=== PATIENT | male | born 1985 | race Caucasian/White ===

== ENCOUNTER 2018-05-16 16:15 | Inpatient (IN) | payer SELFPAY ==
[2018-05-16 16:47] LABS: BILIRUBIN,URINE SMALL (NEG); CLARITY,URINE CLEAR; COLOR,URINE YELLOW; GLUCOSE,URINE NEGATIVE (NEG); NITRITE,URINE NEGATIVE (NEG); PROTEIN,URINE NEGATIVE (NEG-TRACE)
[2018-05-16 16:54] LABS: AMPHETAMINE/METHAMPHETAMINE POS (NEG); BARBITURATES NEG (NEG); BENZODIAZEPINES NEG (NEG); CANNABINOIDS POS (NEG); COCAINE NEG (NEG); ETHANOL, URINE NEG (NEG); METHADONE NEG (NEG); OPIATES NEG (NEG); PHENCYCLIDINE NEG (NEG)
[2018-05-16 16:55] LABS: BACTERIA,URINE 0 /HPF (0-FEW); RBC,URINE 0 /HPF (0-2)
[2018-05-16 17:28] LABS: ADD MAN DIFF? NO
[2018-05-16 17:30] LABS: BASO % 0 % (0-3); EOS % 0 % (0-3); HEMATOCRIT 46.3 % (39.0-53.0); HEMOGLOBIN 15.6 g/dL (13.0-17.5); LYMPH # 1.6 x10^3/uL (1.0-4.8); LYMPH % 19 % (24-48); MEAN CORPUSCULAR HEMOGLOBIN 31 pg (25-35); MEAN CORPUSCULAR HGB CONC 34 g/dL (31-37); MEAN CORPUSCULAR VOLUME 92 fL (79-100); MONO # 0.6 x10^3/uL (0.0-1.1); MONO % 8 % (0-9); NEUT # 5.9 x10^3uL (1.8-7.7); NEUT % 72 % (31-73); PLATELET COUNT 237 x10^3/uL (140-400); RED BLOOD COUNT 5.02 x10^6/uL (4.30-5.70); WHITE BLOOD COUNT 8.2 x10^3/uL (4.0-11.0)
[2018-05-16 17:45] LABS: ANION GAP 11 (6-14); BLOOD UREA NITROGEN 15 mg/dL (8-26); BUN/CREATININE RATIO 14 (6-20); CARBON DIOXIDE 27 mmol/L (21-32); CHLORIDE 102 mmol/L (98-107); CREATININE 1.1 mg/dL (0.7-1.3); GFR 78.1; GLUCOSE 136 mg/dL (70-99); POTASSIUM 3.1 mmol/L (3.5-5.1); SODIUM 140 mmol/L (136-145)
[2018-05-16 17:50] LABS: ALBUMIN/GLOBULIN RATIO 1.3 (1.0-1.7); ALK PHOS 54 U/L (46-116); ALT (SGPT) 24 U/L (16-63); AST (SGOT) 13 U/L (15-37); SALIC < 2.8 mg/dL (2.8-20.0); TOTAL BILIRUBIN 0.8 mg/dL (0.2-1.0); TOTAL PROTEIN 7.2 g/dL (6.4-8.2)
[2018-05-16 17:51] LABS: ACETAMIN < 2 mcg/ml (10-30)
[2018-05-16 17:52] LABS: ETHANOL < 10 mg/dL (0-10)
[2018-05-16] MEDS ORDERED: LORazepam 0.5 MG TABLET PO (20:45)
[2018-05-16] MEDS: LORazepam 0.5 MG TABLET PO (21:10)
[2018-05-16] MEDS: NICOTINE 21MG PATCH. TD (23:54)
[2018-05-17] MEDS ORDERED: ALPRAZolam 0.5 MG TABLET PO (08:30)
[2018-05-17] MEDS: POTASSIUM CHLORIDE 20 MEQ TABLET.ER. PO (09:24)
[2018-05-17] MEDS: QUEtiapine 100 MG TABLET. PO (21:16)
== END 2018-05-18 09:25 | DRG 881 ==
LOC: ER 16:15 → ED HOLD 20:33 → 6 SOUTH 22:27
DX: F32.9 Major depressive disorder, single episode, unspecified (principal); R45.851 Suicidal ideations; F90.9 Attention-deficit hyperactivity disorder, unspecified type; F43.10 Post-traumatic stress disorder, unspecified; F15.90 Other stimulant use, unspecified, uncomplicated; F12.90 Cannabis use, unspecified, uncomplicated; F17.210 Nicotine dependence, cigarettes, uncomplicated; G47.00 Insomnia, unspecified; F41.9 Anxiety disorder, unspecified
CPT/HCPCS: 36415; 80053; 80307; 80329; 81001; 85025; 99285; 99285-25; G0480; G6039

== ENCOUNTER 2018-06-22 11:56 | Emergency (ER) | payer SELFPAY ==
[~2018-06-22] VITALS: Ht 195.6 cm; Wt 93.9 kg
[2018-06-22 12:09] VITALS: BP 117/68
[2018-06-22] MEDS ORDERED: SULF1TAB24 PO (12:47)
--- NOTE | 2018-06-22 12:47 | PHYS DOC ---
Past Medical History Past Medical History: No Pertinent History, Anxiety, Depression Additional Past Medical Histor: ADHD, PTSD Past Surgical History: Other Additional Past Surgical Histo: HERNIA Smoking: Cigarettes Alcohol Use: Heavy Drug Use: Marijuana, Methamphetamine Adult General Chief Complaint Chief Complaint: LOWER EXT PAIN HPI HPI 32-year-old male presents to ER with complaints of right lower leg sores with drainage. Pt reports he was scratched by a cat 2 wks ago and then developed the sores. He denies fever, numbness/tingling, or difficulty walking. He reports he has some swelling in groin denying urinary sxs, testicular pain/swelling, or scrotal pain/swelling. Review of Systems Review of Systems Constitutional: Denies fever or chills [] Respiratory: Denies cough or shortness of breath [] Cardiovascular: Denies CP/palpitations GI: Denies abdominal pain, nausea, vomiting : Denies dysuria or hematuria. Denies scrotal or testicular pain/swelling. Reports swelling in rt groin Musculoskeletal: Denies joint pain. Denies inability/difficulty walking Integument: Reports 3 wounds on rt anterior choudhury with drainage from 2 areas Neurologic: Denies headache, focal weakness or sensory changes [] All other systems were reviewed and found to be within normal limits, except as documented in this note. Allergies Allergies Allergies Coded Allergies Type Severity Reaction Last Updated Verified No Known Drug Allergies 05/16/18 No Physical Exam Physical Exam Constitutional: Well developed, well nourished, no acute distress, non-toxic appearance. [] HENT: Normocephalic, atraumatic, bilateral external ears normal, oropharynx moist, no oral exudates, nose normal. [] Eyes: PERRLA, EOMI, conjunctiva normal, no discharge. [] Neck: Normal range of motion, no tenderness, supple, no stridor. [] Cardiovascular:Heart rate regular rhythm, no murmur [] Lungs & Thorax: Bilateral breath sounds clear to auscultation [] Abdomen: Bowel sounds normal, soft, no tenderness, no masses, no pulsatile masses. [] Skin: Warm, dry, no erythema, no rash. [] Back: No tenderness, no CVA tenderness. [] Extremities: No tenderness, no cyanosis, no clubbing, ROM intact, no edema. [] Neurologic: Alert and oriented X 3, normal motor function, normal sensory function, no focal deficits noted. [] Psychologic: Affect normal, judgement normal, mood normal. [] Current Patient Data Vital Signs Vital Signs Date Time Temp Pulse Resp B/P (MAP) Pulse Ox O2 Delivery O2 Flow Rate FiO2 06/22/18 12:09 99.0 76 16 117/68 (84) 100 Room Air 99.0 Lab Values Microbiology 06/22/18 Aerobic Culture - Final, Complete 06/22/18 Aerobic Culture Result 1 (SHAYAN) - Final, Complete 06/22/18 Gram Stain - Final, Complete 06/22/18 Gram Stain Result 1 (SHAYAN) - Final, Complete 06/22/18 Gram Stain Result 2 (SHAYAN) - Final, Complete 06/22/18 Gram Stain Result 3 (SHAYAN) - Final, Complete EKG EKG [] Radiology/Procedures Radiology/Procedures [] Course & Med Decision Making Course & Med Decision Making Wound cx was obtained from drainage at sores on rt anterior choudhury. Pt was nontoxic in appearance and was noted to have steady gait while in ER. Will provide Rx for Bactrim DS and pt to f/u with PCP for wound re-evaluation if sxs worsen or return to ER for re-eval. Pt was educated on home wound care. Drsg will be applied prior to d/c. Called patient left regarding wound culture. He needs to be on Augmentin- justyn MALIK 06/27/2018 [id number] Eric Disclaimer Eric Disclaimer This electronic medical record was generated, in whole or in part, using a voice recognition dictation system. Departure Departure Impression: Primary Impression: Abscess Disposition: 01 HOME, SELF-CARE Condition: STABLE Referrals: NO PCP (PCP) Patient Instructions: Abscess Additional Instructions: Warm compresses to affected area every 3-4 hours for 20-30 minutes at a time. Tylenol and/or ibuprofen as directed on container for pain as needed. If symptoms worsen follow-up with primary doctor or if needed return to ER for further evaluation/care. Scripts Sulfamethoxazole/Trimethoprim (BACTRIM DS TABLET) 1 Each Tablet 1 TAB PO BID, #14 TAB 0 Refills Prov: MILES AVERY APRN 06/22/18 MILES AVERY APRN Jun 22, 2018 12:47 JUSTYN NAIDU APRN Jun 27, 2018 17:19
== END 2018-06-22 13:09 | disposition home or self-care (01) ==
LOC: ER 11:56
DX: L02.211 Cutaneous abscess of abdominal wall (principal); F41.9 Anxiety disorder, unspecified; F32.9 Major depressive disorder, single episode, unspecified; F17.210 Nicotine dependence, cigarettes, uncomplicated; F10.20 Alcohol dependence, uncomplicated; F90.9 Attention-deficit hyperactivity disorder, unspecified type
CPT/HCPCS: 87070; 99283